=== PATIENT | female | born 1970 | race Caucasian/White ===

== ENCOUNTER 2024-08-16 22:26 | Emergency (ER) | payer SELFPAY ==
[2024-08-16 22:27] VITALS: BMI 36.2
[2024-08-16 23:01] VITALS: BP 122/87; PULSE 83; RESP 20; TEMP 37.7; O2SAT 98
--- NOTE | 2024-08-16 23:19 | XR_ITS ---
Examination: PA lateral chest 2 views Technique: Upright PA lateral chest 2 views Exam date and time: August 16, 2024 11:24 PM Comparison October 14, 2020 Indications: Chest pain today Findings: Normal heart size Lungs are clear. The osseous structures are intact Impression: No active disease
--- NOTE | 2024-08-16 23:20 | PD.EDRME ---
Rapid Medical Screening Exam RME Arrival date/time: 08/16/24 22:26 53-year-old female past medical history of diabetes and smoker presents emergency department complaining of left-sided chest pain. Chief Complaint: Anxiety Time Seen by Provider: 08/16/24 23:07 Vital signs: Vital Signs Temperature 99.8 F 08/16/24 23:01 Pulse Rate 83 08/16/24 23:01 Respiratory Rate 20 08/16/24 23:01 Blood Pressure 122/87 H 08/16/24 23:01 Pulse Oximetry (%) 98 08/16/24 23:01 Oxygen Delivery Method Room Air 08/16/24 23:01 Vital signs reviewed by provider: Yes
[2024-08-17 00:10] LABS: Collection Type, Urine Clean Catch
[2024-08-17 00:24] LABS: Basophils % (Auto) 0 % (0-2.5); Eosinophils # (Auto) 0.2 Thou/mm3 (0.0-0.5); Eosinophils % (Auto) 3 % (0-10); Hemoglobin 12.4 g/dL (12.0-16.0); Immature Granulocytes % (Auto) 0 % (0-0); Immature Granulocytes Auto 0.02 Thou/mm3 (0.00-0.00); Lymphocytes # (Auto) 2.1 Thou/mm3 (1.0-4.8); Lymphocytes % (Auto) 27 % (10-50); Mean Corpuscular HGB Conc 33.5 g/dl (31.0-37.0); Mean Corpuscular Hemoglobin 31.4 pg (25.0-35.0); Mean Corpuscular Volume 94 fL (80-100); Monocytes # (Auto) 0.8 Thou/mm3 (0.0-0.8); Monocytes % (Auto) 11 % (0-12); Neutrophils # (Auto) 4.6 Thou/mm3 (1.8-7.7); Neutrophils % (Auto) 59 % (37-80); Nucleated Red Blood Cell % 0 /100 WBC (0); Platelet Count 313 Thou/mm3 (140-440); RDW Standard Deviation 45.5 fL (36.4-46.3); Red Blood Count 3.95 Miln/mm3 (4.00-5.20); White Blood Count 7.8 Thou/mm3 (3.6-11.0)
[2024-08-17 00:33] LABS: B-Type Natriuretic Peptide < 20 pg/mL (0-100)
[2024-08-17 00:35] LABS: Alanine Aminotransferase 21 U/L (10-49); Albumin, Serum 4.4 gm/dL (3.5-5.0); Albumin/Globulin Ratio 1.6 (1.2-2.2); Alkaline Phosphatase 84 U/L (46-116); Anion Gap 8 (7-16); Aspartate Amino Transferase 15 U/L (0-34); BUN/Creatinine Ratio 16 Ratio (12-20); Bilirubin,Total 0.3 mg/dL (0.3-1.2); Blood Urea Nitrogen 11 mg/dL (9-23); Calcium 9.9 mg/dL (8.3-10.6); Calcium (Corrected) 9.9 mg/dL (8.5-10.1); Carbon Dioxide 27.9 mMol/L (20.0-31.0); Chloride 106 mMol/L (98-107); Creatinine (Component) 0.7 mg/dL (0.6-1.3); Estimated Creatinine Clearance 106.7 mL/min (>60); Globulin 2.7 gm/dL (2.3-3.5); Glucose 205 mg/dL (74-106); Magnesium 1.8 mg/dL (1.6-2.6); Osmolality,Calculated 288 (275-295); Potassium 3.6 mMol/L (3.4-5.1); Prothrombin Time 10.7 Seconds (9.0-12.2); Sodium 142 mMol/L (136-145); Total Protein 7.1 gm/dL (5.7-8.2); Troponin I < 0.002 ng/mL (0.0-0.045); eGFR > 60 See Note
[2024-08-17 00:36] VITALS: BP 122/80; PULSE 77; RESP 16; TEMP 36.7; O2SAT 95
[2024-08-17 00:37] LABS: Amphetamine/Methamp Scrn,U Negative (Negative); Barbiturate Screen,Urine Negative (Negative); Benzodiazepines Screen,Urine Negative (Negative); Benzoylecgonine Screen, Ur Negative (Negative); Fentanyl Screen,Urine Negative (Negative); Opiate Screen,Urine Positive (Negative); THC Screen,Urine Negative (Negative)
[2024-08-17 00:38] LABS: Bilirubin,Urine Negative (Negative); Blood,Urine Negative (Negative); Clarity,Urine Clear (Clear/Hazy); Color,Urine Yellow (Lt Yel-Yel); Glucose, Urine Negative (Negative); Ketones,Urine Negative (Negative); Leukocyte Esterase,Urine Negative (Negative); Nitrite,Urine Negative (Negative); Protein,Urine Negative (Neg - Trace); RBC,Urine 4 /hpf (0-3); Specific Gravity,Urine 1.026 (1.001-1.035); Squamous Epithelial Cell,Urine 1 /hpf (0-5); WBC,Urine 3 /hpf (0-5)
--- NOTE | 2024-08-17 01:18 | EDNOTE_ITS ---
ED Chest Pain RME/HPI General Chief Complaint: Anxiety Stated Complaint: ANXIETY ATTACK Time Seen by Provider: 08/16/24 23:07 Arrival date/time: 08/16/24 22:26 RME / HPI RME / HPI narrative: 08/16/24 22:26 53-year-old female past medical history of diabetes and smoker presents emergency department complaining of left-sided chest pain. DR. CALZADA MAIN ED EVALUATION: 53 year old female presents to the Emergency Department with complaint of chest pressure that radiates to the back. Patient states he had an anxiety attack. Symptoms are moderate. Related Data Home Medications ?Medication ?Instructions ?Recorded ?Confirmed omeprazole 40 mg capsule,delayed 40 mg PO QDAY 02/12/18 10/13/20 release ibuprofen 800 mg tablet 800 mg PO Q6H PRN Pain 09/04/19 10/13/20 pravastatin 40 mg tablet 40 mg PO QDAY 09/04/19 10/13/20 Previous Rx's ?Medication ?Instructions ?Recorded ferrous sulfate 325 mg (65 mg 325 mg PO BID #120 tabs 09/04/19 iron) tablet albuterol sulfate 90 mcg/actuation 2 puff inhalation QID PRN 10/14/20 aerosol inhaler shortness of breath or wheezing #18 grams fluticasone 100 mcg-salmeterol 50 1 inh inhalation BID #60 ea 10/14/20 mcg/dose blistr powdr for inhalation (Advair Diskus) Allergies Allergy/AdvReac Type Severity Reaction Status Date / Time No Known Allergies Allergy Verified 05/25/23 21:59 Review of Systems Review of Systems Systems Reviewed: All systems reviewed, normal except as documented Narrative Review of Systems: GEN: No fever, no chills, no weight loss EYES: No discharge, no visual changes, no pain HEENT: No ear pain, no congestion, no sore throat PULM: No shortness of breath, no cough, no congestion CV: + chest pain, no dyspnea on exertion, no palpitations GI: No nausea, no vomiting, no diarrhea, no pain, no constipation : No frequency, no urgency and no dysuria MUSC/SKEL: No joint pain, no back pain SKIN: No rash PSYCH: No hallucinations, no depression, + anxiety HEME/LYMPH: No easy bleeding or bruising tendencies NEURO: No weakness, no headache Past Medical History Past Medical History NEUROLOGIC: Positive Neurological Disorders, Seizures and Migraine GENITOURINARY: Positive Genitourinary Disorders PSYCHO/SOCIAL: Positive Anxiety Social History SMOKING STATUS: Never smoker SUBSTANCE USE: marijuana ALCOHOL: Never ED Exam Narrative Physical exam: GENERAL APPEARANCE: alert and oriented x 4, well-developed, well-nourished, no acute distress VITALS: All vitals were reviewed and the pulse ox is 96% on room air, which is normal according to my interpretation. HEENT: Normocephalic, atraumatic; pupils equal, round, reactive to light; EOMI; mucous membranes pink, moist; oropharynx clear NECK: Supple LUNGS: CTABL; no wheezes, no rales, no rhonchi HEART: Regular rate, regular rhythm; normal S1, S2; no murmurs ABDOMEN: non distended; normal BS; soft, no tenderness, no guarding, no rebound; no masses, no organomegaly, no hernia BACK: no CVA tenderness EXTREMITIES: atraumatic; no edema NEUROLOGIC: awake; alert and oriented x4; cranial nerves II-XII grossly intact; no focal sensory or motor deficits PSYCHIATRIC: appropriate mood and affect SKIN: warm, dry, normal color; no rashes Course Quality Measures none Orders Category Date Time Status EKG (ED ONLY) *Do not use* NOW Care 08/16/24 22:30 Completed EKG (ED Only) Stat Exams 08/16/24 22:30 Ordered XR chest 2V Stat Exams 08/16/24 23:19 Completed B-Type Natriuretic Peptide Stat Lab 08/16/24 23:19 Completed CBC Stat Lab 08/16/24 23:19 Completed Comprehensive Metabolic Panel Stat Lab 08/16/24 23:19 Completed Drug Screen,Urine Stat Lab 08/17/24 00:03 Completed Magnesium Stat Lab 08/16/24 23:19 Completed Partial Thromboplastin Time Stat Lab 08/16/24 23:19 Completed Prothrombin Time with INR Stat Lab 08/16/24 23:19 Completed Troponin I Stat Lab 08/16/24 23:19 Completed Urinalysis Stat Lab 08/17/24 00:03 Completed Reevaluation(s) Reevaluation #1: Patient remains clinically stable throughout the emergency department visit. Re- assessment at the time of disposition demonstrates that the patient is in no acute distress. We reviewed all the results, analysis, and treatment plans. Ava ent is amenable to discharge. Strict return precautions were outlined. Patient was discharged in stable condition. Time: 01:30 Vital Signs Vital signs: Vital Signs Temperature 99.8 F 08/16/24 23:01 Pulse Rate 83 08/16/24 23:01 Respiratory Rate 20 08/16/24 23:01 Blood Pressure 122/87 H 08/16/24 23:01 Pulse Oximetry (%) 98 08/16/24 23:01 Oxygen Delivery Method Room Air 08/16/24 23:01 Chest Pain MDM Narrative MDM Narrative:: Shasha Sparks am scribing for and in the presence of Dr. Calzada. Patient data External records reviewed:: [facility] previous records (Reviewed last ED visit dated 05/25/23, discharged with the following: Hypertension.) Clinical information provided by:: patient Social determinants that could affect healthcare access:: substance use (marijuana) Patient has the following chronic illnesses:: Hypertension and seizures. How is presenting disease/condition affected by chronic disease/condition?: uneffected by Evaluation data The following diagnostics were reviewed and interpreted by me:: lab results and radiology exam(s) Lab and/or radiology exams considered but not ordered:: none Interpretation Summary: Procedure(s): XR chest 2V Accession Number(s): [id number] cc: Theodore Adame MD; Temporary Provider,ED ; Saman Pickett (FNP)~ Examination: PA lateral chest 2 views Technique: Upright PA lateral chest 2 views Exam date and time: August 16, 2024 11:24 PM Comparison October 14, 2020 Indications: Chest pain today Findings: Normal heart size Lungs are clear. The osseous structures are intact Impression: No active disease Dictated By: Theodore Adame MD Medications / Prescriptions Medications or Prescriptions considered but not ordered:: none Medication administrations:: none Consultations Consultation(s) initiated? (list below): No Diagnosis Chest Pain Differential Diagnosis: fracture of rib, atypical chest pain, costochondritis and chest pain Most likely diagnosis given after review of the tests above:: Rib pain on left side Admission Indicated Admission indicated?: not indicated Admission Request Was there a request for admission?: No Disposition Plan Disposition Plan: Discharge Discharge Attestation Discharge Attestation: The patient and all family members were given an opportunity to ask questions and understood the discharge instructions. Discharge instructions specifically effects, indications for sooner follow up or return to the emergency department, and the expected course of current diagnosis. Patient condition: Stable Discharge Plan Plan Patient Disposition: HOME (Self Care) Prescriptions/Referrals Prescriptions/Med Rec: No Action omeprazole 40 mg capsule,delayed release(DR/EC) 40 mg PO QDAY fluticasone propion-salmeterol [Advair Diskus] 100-50 mcg/dose blister with device 1 inh inhalation BID Qty: 60 0RF albuterol sulfate 90 mcg/actuation HFA aerosol inhaler 2 puff inhalation QID PRN (Reason: shortness of breath or wheezing) Qty: 18 0RF pravastatin 40 mg Tablet 40 mg PO QDAY ibuprofen 800 mg Tablet 800 mg PO Q6H PRN (Reason: Pain) ferrous sulfate 325 mg (65 mg iron) tablet 325 mg PO BID Qty: 120 0RF Rx Instructions: Be sure to take your iron pills on an empty stomach, with orange juice Referrals: Temporary Provider,ED [Physician] - In 1 week Problem List Clinical Impression: Rib pain on left side Patient/Caregiver Discharge Instructions Education Materials: ED Chest Pain, Noncardiac Print Language: [place] Stand Alone Forms: Johanna Award Info., Patient Portal Info Letter
[2024-08-17 01:33] VITALS: BP 120/76; PULSE 78; RESP 18; TEMP 36.5; O2SAT 96
== END 2024-08-17 01:54 | disposition home or self-care (01) ==
LOC: SERX 08-17 02:18
PROVIDERS: Emergency Provider Emergency Medicine; PCP Nurse Practitioner
DX: R07.81 Pleurodynia (principal); R07.89 Other chest pain; I49.40 Unspecified premature depolarization; F41.9 Anxiety disorder, unspecified; I10 Essential (primary) hypertension; F17.210 Nicotine dependence, cigarettes, uncomplicated
CPT/HCPCS: 36415; 71046; 80053; 80307; 81001; 83735; 83880; 84484; 85025; 85610; 85730; 93005; 99283